=== PATIENT | female | born 1980 | race Hispanic/Latino ===

== ENCOUNTER 2023-05-14 07:53 | Emergency (ER) | payer BC, MEDICAID ==
[~2023-05-14] VITALS: Ht 152.4 cm; Wt 55.8 kg
[2023-05-14 08:10] VITALS: BP 146/96; PULSE 85; RESP 18; O2SAT 99
[2023-05-14 08:20] LABS: BASOPHILS # (AUTO) 0.05 K/uL (0.00-0.20); BASOPHILS % (AUTO) 0.8 % (0.0-5.0); EOSINOPHILS # (AUTO) 0.08 K/uL (0.00-0.70); EOSINOPHILS % (AUTO) 1.3 % (0.0-8.0); HEMATOCRIT 40.6 % (36-48); IMMATURE GRANULOCYTE ABSOLUTE 0.03 K/uL (0-1); LYMPHOCYTES # (AUTO) 2.3 K/uL (1.0-4.8); MEAN CORPUSCULAR HEMOGLOBIN 30.8 pg (27.0-33.0); MEAN CORPUSCULAR HGB CONC 34.2 g/dL (32.0-36.0); MEAN CORPUSCULAR VOLUME 89.8 fL (79-99); MONOCYTES # (AUTO) 0.4 K/uL (0.1-1.0); MONOCYTES % (AUTO) 6.4 % (3.0-13.0); NEUTROPHILS # (AUTO) 3.3 K/uL (1.8-7.7); PLATELET COUNT (AUTO) 313 K/uL (130-400); RED BLOOD CELL COUNT(AUTO) 4.52 MIL/uL (4.00-5.50); WHITE BLOOD COUNT (AUTO) 6.1 K/uL (4.8-10.8)
[2023-05-14] MEDS ORDERED: MORPHINE 4 MG SYG IVP ONE (08:30)
[2023-05-14] MEDS ORDERED: METOCLOPRAMIDE 10 MG/2 ML VIAL IVP ONE (08:30)
[2023-05-14 08:31] LABS: APPEARANCE,URINE CLEAR (CLEAR); BILIRUBIN,URINE NEGATIVE (NEGATIVE); COLOR,URINE LIGHT-YELLOW (YELLOW); GLUCOSE, URINE (UA) NEGATIVE (NEGATIVE); KETONES,URINE NEGATIVE (NEGATIVE); LEUKOCYTE ESTERASE ,URINE NEGATIVE Leu/uL (NEGATIVE); NITRATE,URINE NEGATIVE (NEGATIVE); OCCULT BLOOD,URINE NEGATIVE (NEGATIVE); PROTEIN,URINE NEGATIVE (NEGATIVE); UROBILINOGEN,URINE 0.2 mg/dL (0.2-1.0)
[2023-05-14 08:42] LABS: ADD UA MICROSCOPIC NO
[2023-05-14 08:47] LABS: CREATININE 0.9 mg/dL (0.5-1.5); POTASSIUM 3.4 mmol/L (3.5-5.1)
[2023-05-14] MEDS ORDERED: IOHEXOL-350 75 ML VIAL IV ONE (09:40)
[2023-05-14] MEDS ORDERED: LACTATED RINGERS 1000ML IV SCH (11:30)
[2023-05-14] MEDS ORDERED: KETOROLAC 15MG/ML VIAL (15MG/ML) IV ONE (11:30)
[2023-05-14] MEDS ORDERED: METO-296 PO (12:26)
[2023-05-14] MEDS ORDERED: POLY17PO4 PO (12:26)
== END 2023-05-14 12:34 | disposition home or self-care (01) ==
LOC: EDH 07:53
DX: K80.50 Calculus of bile duct without cholangitis or cholecystitis without obstruction (principal); Z98.890 Other specified postprocedural states
CPT/HCPCS: 99284; 74178; 96374; 96361; 96375; 80048; 85025; 81003; 81025; 36415; J7120; J2270; J2765; J1885; Q9967